=== PATIENT | male | born 1935 | race Caucasian/White ===

== ENCOUNTER 2018-02-18 08:02 | Day surgery (SDC) | payer MEDICARE ==
[2018-02-15 09:47] VITALS: BMI 28.0
[2018-02-18] MEDS ORDERED: LIDOCAINE 1% 20 ML VIAL (10MG/ML) FOR IV START INTRADERMA ONE (09:01)
[2018-02-18] MEDS ORDERED: LACTATED RINGERS 1,000 ML IV ONE ×2 (09:02→11:56)
[2018-02-18] MEDS ORDERED: ONDANSETRON 4 MG/2 ML VIAL IVP ONE (09:13)
[2018-02-18] MEDS ORDERED: DEXAMETHASONE SOD PHOSPHATE 10 MG/ML 1 ML VIAL IV ONE (09:13)
[2018-02-18 09:28] LABS: INR 2.1 (<1.2); Prothrombin Time 18.8 sec (9.0-12.0)
--- NOTE | 2018-02-18 11:50 | P.GSHP ---
History of Present Illness H&P Date: 02/18/18 Chief Complaint: Gross Hematuria The patient is an 82-year-old white male with chronic urinary retention, for which she performs intermittent self-catheterization 69 times daily. He has a history of intermittent gross hematuria. He has undergone cystoscopy with biopsies in 2014 in 2016, each time revealing chronic cystitis. Cystoscopy on those occasions revealed a cobblestone appearance of the bladder dome. He has recently developed recurrent gross hematuria, which has persisted despite antibiotic therapy. He now comes for cystoscopy with biopsies, fulguration of bleeders. - Constitutional Constitutional: Denies chills, Denies fever - Respiratory Respiratory: Denies dyspnea - Genitourinary (Female) Genitourinary: Reports hematuria, Denies dysuria Past Medical History Past Medical History: Atrial Fibrillation, Blood Disorder, Coronary Artery Disease (CAD), Cancer, COPD, CVA/TIA, Diabetes Mellitus, Deep Vein Thrombosis ( DVT), Eye Disorder, GERD/Reflux, Hearing Disorder / Deafness, Hyperlipidemia, Hypertension, Myocardial Infarction (NH), Pulmonary Embolus (PE), Renal Disease , Sleep Apnea/CPAP/BIPAP, Syncope Additional Past Medical History / Comment(s): HX: CVA / some vision loss in L eye, thrombocytopenia purpura, chronic urinary retention-self catheterizes; glaucoma bilateral eyes,hx of testicular cancer/surgery and radiation, stomach cancer/ surgery, chronic anemia, DVT/ associated with piccline/Bilateral pulmonary embolisms ; NH's x 2, back pain, varicose veins bilaterally, inguinal hernia, chronic gallstones, hiatal hernia, polyps, . Last Myocardial Infarction Date:: 11/10 History of Any Multi-Drug Resistant Organisms: None Reported Past Surgical History: Heart Catheterization, Orthopedic Surgery, Pacemaker Additional Past Surgical History / Comment(s): spleenectomy due to war wound in [place], pilonidal cyst removed, L testicle removed, most of stomach removed, parotid tumor removed, arthroscopy both knees, colonoscopy, EGD, adhesion removal, 2 cardiac caths treated medically, cystscopy with bx, piccline insertion and removal. Past Anesthesia/Blood Transfusion Reactions: No Reported Reaction Type of Cardiac Device: Permanent Pacemaker Device Placement Date:: 01/2017 Smoking Status: Former smoker - Past Family History Father Family Medical History: Cancer, Skin Disorder Additional Family Medical History / Comment(s): Psoriasis. Cancer which may have been in his lungs. Mother Family Medical History: AFIB, Cancer Additional Family Medical History / Comment(s): cancer which may have been in her kidneys and liver. Medications and Allergies Home Medications Medication Instructions Recorded Confirmed Type Aspirin 81 mg PO DAILY 12/25/13 02/18/18 History Calcitriol 0.5 mcg PO DAILY 12/25/13 02/18/18 History Ferrous Sulfate [Feosol] 650 mg PO BID 12/25/13 02/18/18 History Latanoprost Ophth [Xalatan 0.005%] 1 drops BOTH EYES HS 12/25/13 02/18/18 History Loratadine [Claritin] 10 mg PO DAILY 12/25/13 02/18/18 History Minocycline HCl [Minocin] 100 mg PO Q12HR 12/25/13 02/18/18 History Pantoprazole Sodium 40 mg PO BID 12/25/13 02/18/18 History Ranitidine HCl 150 mg PO DAILY 12/25/13 02/18/18 History Warfarin [Coumadin] 2.5 mg PO SUTUTHSA 12/25/13 02/18/18 History amLODIPine [Norvasc] 10 mg PO DAILY 12/25/13 02/18/18 History glipiZIDE [Glucotrol] 2.5 mg PO AC-BRKFST 12/25/13 02/18/18 History Ascorbic Acid [Vitamin C] 500 mg PO DAILY 04/09/15 02/18/18 History Multivitamin [Men's Multi-Vitamin] 1 tab PO DAILY 04/09/15 02/18/18 History [place]-3 Fatty Acids/Fish Oil [Fish 1 cap PO DAILY 04/09/15 02/18/18 History Oil 1,000 mg Softgel] Atorvastatin [Lipitor] 5 mg PO Q48H 02/15/18 02/18/18 History Metoclopramide [Reglan] 10 mg PO TID 02/15/18 02/18/18 History Metoprolol Tartrate [Lopressor] 25 mg PO BID 02/15/18 02/18/18 History Warfarin [Coumadin] 5 mg PO MOWEFR 02/18/18 02/18/18 History Allergies Allergy/AdvReac Type Severity Reaction Status Date / Time metformin Allergy Unknown Verified 02/18/18 08:35 Penicillins Allergy Rash/Hives Verified 02/18/18 08:35 Surgical - Exam Vital Signs Temp Pulse BP Pulse Ox 97 F L 71 125/76 100 02/18/18 08:43 02/18/18 08:43 02/18/18 08:43 02/18/18 08:43 - General well developed, well nourished, no distress - Respiratory normal respiratory effort, clear to auscultation - Cardiovascular Rhythm: regular Abnormal Heart Sounds: no systolic murmur, no diastolic murmur, no rub, no S3 Gallop, no S4 Gallop, no click, no other - Abdomen Abdomen: soft, non tender, no guarding, no rigid, no rebound - Psychiatric oriented to time, oriented to person, oriented to place, speech is normal, memory intact Results - Labs Abnormal Lab Results - Last 24 Hours (Table) 02/18/18 Range/Units 09:00 PT 18.8 H (9.0-12.0) sec INR 2.1 H (<1.2) Assessment and Plan (1) Gross hematuria Current Visit: Yes Status: Acute Code(s): R31.0 - GROSS HEMATURIA SNOMED Code(s): 850495492 Plan: Cystoscopy, possible bladder biopsy, fulguration of bleeder. The Obrien tumor is identified, a TUR-BT will be performed. The rationale for the procedure was well understood by the patient. He understands potential risks to include anesthesia, bleeding, infection, persistent hematuria, and bladder perforation.
[2018-02-18] MEDS ORDERED: ceFAZolin IN SWFI 2 GM/20 ML SYRINGE IVP STA (11:54)
[2018-02-18] MEDS ORDERED: PROPOFOL 10 MG/ML 20 ML VIAL IV ONE (12:10)
[2018-02-18] MEDS ORDERED: fentaNYL (PF) 50 MCG/ML 2 ML AMP ONE (12:10)
--- NOTE | 2018-02-18 13:05 | P.OP ---
Date of Procedure: 02/18/18 Preoperative Diagnosis: Gross hematuria Postoperative Diagnosis: Same Procedure(s) Performed: Cystoscopy, evacuation of clot, fulguration of bleeders Anesthesia: MEHRAN Surgeon: Juan Alberto Ramos Estimated Blood Loss (ml): 10 IV fluids (ml): 300 Pathology: none sent Condition: stable Disposition: PACU Indications for Procedure: The patient is an 82-year-old white male with chronic urinary retention, for which she performs intermittent self-catheterization 69 times daily. He has a history of intermittent gross hematuria. He has undergone cystoscopy with biopsies in 2013 in 2016, each time revealing chronic cystitis. Cystoscopy on those occasions revealed a cobblestone appearance of the bladder dome. He has recently developed recurrent gross hematuria, which has persisted despite antibiotic therapy. He now comes for cystoscopy with biopsies, fulguration of bleeders. Operative Findings: Several small clots are removed from the bladder. There are areas of patchy erythema on the posterior bladder wall and bladder dome, two of which are oozing slightly. Description of Procedure: The patient was taken to the operating room and placed in the dorsolithotomy position, with legs supported in Maximus stirrups. The external genitalia was prepped and draped sterilely. The 30 lens was used to introduce the 19-Ivorian Stortz cystoscopic sheath through the urethra and into the bladder under direct vision. The anterior urethra was of narrow caliber, snug to the passage of the cystoscope. The prostatic urethra showed evidence of mild lateral lobe enlargement. The bladder was examined in its entirety. Both ureteral orifices were of normal anatomic location and configuration, and clear urine effluxed from both. No tumors or foreign bodies were seen. Patchy erythema was seen at the bladder dome and posterior bladder wall. A clot was adherent to one of these areas on the posterior bladder wall. Oozing was noted from this site, as well as the bladder dome. The clots were removed from the bladder. The Bugbee electrode was then used to fulgurate the areas of bleeding, as well as other areas of erythema on the posterior bladder wall which appeared prone to oozing. Nonetheless, some oozing was noted as the bladder filled. Therefore, after removing the cystoscope, the decision was made to place a Obrien catheter. A 16- Ivorian Obrien catheter could not be placed, but a 16-Ivorian coud tip catheter was placed without difficulty. The patient tolerated the procedure well was taken to the recovery room in stable condition.
[2018-02-18 13:23] VITALS: TEMP 98.2
[2018-02-18 14:00] VITALS: RESP 16
[2018-02-18 14:32] VITALS: BP 145/74; PULSE 60
== END 2018-02-18 14:49 | disposition home or self-care (01) ==
LOC: OR 08:02
PROVIDERS: ATTEND Urology
DX: R31.0 Gross hematuria (principal); R33.8 Other retention of urine; I48.91 Unspecified atrial fibrillation; I25.10 Atherosclerotic heart disease of native coronary artery without angina pectoris; E11.22 Type 2 diabetes mellitus with diabetic chronic kidney disease; I12.9 Hypertensive chronic kidney disease with stage 1 through stage 4 chronic kidney disease, or unspecified chronic kidney disease; N18.9 Chronic kidney disease, unspecified; Z87.891 Personal history of nicotine dependence; I25.2 Old myocardial infarction; J44.9 Chronic obstructive pulmonary disease, unspecified; I69.398 Other sequelae of cerebral infarction; H53.8 Other visual disturbances; Z86.718 Personal history of other venous thrombosis and embolism; K21.9 Gastro-esophageal reflux disease without esophagitis; K44.9 Diaphragmatic hernia without obstruction or gangrene; E78.5 Hyperlipidemia, unspecified; H91.90 Unspecified hearing loss, unspecified ear; Z86.711 Personal history of pulmonary embolism; G47.30 Sleep apnea, unspecified; Z99.89 Dependence on other enabling machines and devices; Z85.028 Personal history of other malignant neoplasm of stomach; Z85.47 Personal history of malignant neoplasm of testis; Z90.79 Acquired absence of other genital organ(s); Z92.3 Personal history of irradiation; D64.9 Anemia, unspecified; H40.9 Unspecified glaucoma; Z79.01 Long term (current) use of anticoagulants; Z79.84 Long term (current) use of oral hypoglycemic drugs; Z79.82 Long term (current) use of aspirin; Z79.899 Other long term (current) drug therapy; Z88.0 Allergy status to penicillin; Z88.8 Allergy status to other drugs, medicaments and biological substances; Z95.0 Presence of cardiac pacemaker
CPT/HCPCS: 85610; 52001; J1100; J2405; J3010; J2704; J0690

== ENCOUNTER → 2018-03-23 | Outpatient (CLI) | payer MEDICARE ==
[2018-03-23 13:50] LABS: Albumin 4.1 g/dL (3.5-5.0); Calcium 9.7 mg/dL (8.4-10.2); Potassium 4.3 mmol/L (3.5-5.1); Total Bilirubin 0.8 mg/dL (0.2-1.3); Total Protein 8.3 g/dL (6.3-8.2)
[2018-03-23 13:56] LABS: Basophils # (A) 0.1 k/uL (0-0.2); Basophils % (A) 1 %; Eosinophils # (A) 0.2 k/uL (0-0.7); Eosinophils % (A) 3 %; HCT 40.2 % (39.0-53.0); HGB 12.7 gm/dL (13.0-17.5); Hypochromasia Moderate; Lymphocytes # (A) 1.8 k/uL (1.0-4.8); Lymphocytes % (A) 27 %; MCH 31.8 pg (25.0-35.0); MCHC 31.6 g/dL (31.0-37.0); MCV 100.7 fL (80.0-100.0); Macrocytosis Slight; Mean Platelet Volume 7.9; Monocytes # (A) 0.5 k/uL (0-1.0); Monocytes % (A) 8 %; Neutrophils # (A) 3.9 k/uL (1.3-7.7); Neutrophils % (A) 59 %; Platelet Count 206 k/uL (150-450); RBC 3.99 m/uL (4.30-5.90); RDW 15.1 % (11.5-15.5); WBC 6.6 k/uL (3.8-10.6)
--- NOTE | 2018-03-23 15:28 | CT ---
EXAMINATION TYPE: CT ChestAbdPelvis wo/w con DATE OF EXAM: 03/23/2018 COMPARISON: November 05, 2014 HISTORY: Abnormal weight loss, nausea, vomiting, generalized pain. CT DLP: 1973.6 mGycm CONTRAST: CT scan of the chest, abdomen and pelvis is performed with Oral Contrast and without and with IV Cont rast, patient injected with 80 mL of Isovue 300. CT Chest: LUNGS: There is a small right-sided pleural effusion. 3 mm right lower lobe subpleural nodule noted. Upper lobe emphysematous changes mild in degree. MEDIASTINUM: There is soft tissue mass noted adjacent to or arising from the distal esophagus measuri ng 5.6 x 4.4 cm. There is esophageal luminal narrowing with proximal dilatation with intraluminal merced ris. Tissue diagnosis is recommended to exclude malignancy. No additional mediastinal masses seen. Pr ecarinal adenopathy measuring 1.4 cm. Subcarinal adenopathy measuring 1.7 cm. Thoracic aorta is of no rmal caliber. Mild atheromatous changes seen. The heart is mildly enlarged. HILAR STRUCTURES: Right hilar adenopathy noted measuring 3.4 cm in greatest dimension. Additional sma ller slightly greater than 1 cm lymph nodes seen right hilum. OTHER: No significant abnormality. CONTRAST CT ABDOMEN AND PELVIS FINDINGS: LIVER/GB: There is evidence of cholelithiasis.. No space occupying hepatic lesion. Biliary tree is o f normal caliber. PANCREAS: No inflammation. No distinct mass. SPLEEN: Diminutive and partially calcified spleen. ADRENALS: No nodule. No thickening. KIDNEYS/BLADDER: No hydronephrosis. No nephrolithiasis. Renal parenchymal thinning. Multiple hypoat tenuating hepatic lesions may reflect cysts. BOWEL: Normal appendix. Normal bowel caliber. No infla mmation. GENITAL ORGANS: No gross abnormality. LYMPH NODES: No greater than 1cm abdominal or pelvic lymph nodes are appreciated. AORTA: No significant abnormality. OSSEOUS STRUCTURES: No significant abnormality is seen. OTHER: Fat and fluid containing right inguinal hernia. IMPRESSION: 1. There is soft tissue mass noted adjacent to or arising from the distal esophagus measuring 5.6 x 4 .4 cm. There is esophageal luminal narrowing with proximal dilatation with intraluminal debris. Tissu e diagnosis is recommended to exclude malignancy. 2. Mediastinal and hilar adenopathy. 3. Small right-sided pleural effusion with the subpleural nodule right lower lobe. 4. Cholelithiasis. 5. The renal parenchymal thinning with the renal cystic changes noted.
== END ==
LOC: RADCTMAIN 12:47
PROVIDERS: ATTEND Internal Medicine Gastroenterology
DX: K80.20 Calculus of gallbladder without cholecystitis without obstruction (principal); N28.1 Cyst of kidney, acquired
CPT/HCPCS: 80053; 85025; 71270; 74178; 36415; Q9967

== ENCOUNTER 2018-04-19 08:50 | Day surgery (SDC) | payer MEDICARE ==
[2018-04-15 14:52] VITALS: BMI 25.1
[~2018-04-19 08:50] MED LIST: HYDROmorphone 0.5 MG/0.5 ML SYRINGE IVP PRN; LACTATED RINGERS 1,000 ML IV SCH; LIDOCAINE 1% 20 ML VIAL (10MG/ML) FOR IV START INTRADERMA PRN
[2018-04-19] MEDS ORDERED: LIDOCAINE 1% 20 ML VIAL (10MG/ML) FOR IV START INTRADERMA ONE (10:31)
[2018-04-19 10:47] VITALS: RESP 16; TEMP 97.1
[2018-04-19 10:52] LABS: Glucose,Whole Blood 105 mg/dL (75-99)
[2018-04-19] MEDS ORDERED: LIDOCAINE 1% INJ 10MG/ML (20 ML MDV) ONE (11:39)
[2018-04-19] MEDS ORDERED: PROPOFOL 10 MG/ML 20 ML VIAL IV ONE (11:39)
[2018-04-19 12:25] VITALS: PULSE 70
--- NOTE | 2018-04-19 12:31 | P.PCN ---
Date of Procedure: 04/19/18 Procedure(s) Performed: Procedure: Esophagogastroduodenoscopy and esophageal dilation using the Microvasive btdtfoe-umy-zidwb balloon dilator size 10-12 mm. Preoperative diagnosis: Dysphagia, weight loss and abnormal CT. Postoperative diagnosis: 1. Benign narrowing in the distal esophagus requiring dilation up to 12 mm before I could pass the endoscope into the gastric remnant. 2. No intrinsic mass at that gastroesophageal junction. 3. S/P subtotal gastrectomy with no masses in the gastric remnant or abnormalities at the anastomosis with the small intestine. Preparation and sedation: Were provided by anesthesia. Brief clinical history: The patient is an 82-year-old male with history of gastric cancer for which he underwent subtotal gastrectomy in 2003. He was having difficulties last year with swallowing and an upper endoscopy was performed October 2017 with dilation of the esophagus up to 18 mm. The esophagus was further dilated in November up to 20 mm. The patient underwent a CT scan in February that demonstrated a soft tissue mass adjacent to or arising from the distal esophagus. Tissue diagnosis was recommended. The patient has been having progressive dysphagia and weight loss since January with loss of 35-40 pounds. Procedure: With the patient on his left lateral decubitus position and after informed consent and adequate sedation, I passed the Olympus GIF-XQ 190 video upper endoscope, which measures 9.9 mm, through the cricopharyngeus down the esophagus. Once in the distal esophagus at around 40 cm from the incisors there was narrowing that would not allow the advancement of the endoscope. This appeared to be a benign narrowing and I proceeded to pass the Microvasive hjkrbro-her-pjrso balloon dilator size 10-12 mm and I inflated it up to 12 mm following which I was able to pass the endoscope into the gastric remnant. As mentioned, the narrowing appeared benign and there was no evidence of intrinsic mass. There was friability in the gastric remnant but no masses or any abnormalities at the junction with the esophagus or with the intestine. I advanced the endoscope into the small intestine as well. In the retroflexed view no masses are seen in the esophagus. The patient tolerated the procedure well. Plan: The patient was reassured. It is possible that we could be dealing with a benign stricture, on top of dysmotility or extrinsic compression on the esophagus. We will consider further evaluation including barium study and motility studies based on his course as well as further dilation especially in light of his weight loss. Would keep you updated on his progress.
[2018-04-19 12:42] VITALS: BP 120/73
== END 2018-04-19 13:22 | disposition home or self-care (01) ==
LOC: ORWHC2ENDO 08:50
DX: K22.2 Esophageal obstruction (principal); Z90.3 Acquired absence of stomach [part of]; Z85.028 Personal history of other malignant neoplasm of stomach; I25.10 Atherosclerotic heart disease of native coronary artery without angina pectoris; I10 Essential (primary) hypertension; E78.5 Hyperlipidemia, unspecified; I48.91 Unspecified atrial fibrillation; Z95.0 Presence of cardiac pacemaker; Z86.718 Personal history of other venous thrombosis and embolism; Z86.711 Personal history of pulmonary embolism; J44.9 Chronic obstructive pulmonary disease, unspecified; G47.33 Obstructive sleep apnea (adult) (pediatric); Z87.891 Personal history of nicotine dependence; E11.9 Type 2 diabetes mellitus without complications; Z86.73 Personal history of transient ischemic attack (TIA), and cerebral infarction without residual deficits; H91.90 Unspecified hearing loss, unspecified ear; K21.9 Gastro-esophageal reflux disease without esophagitis; Z79.01 Long term (current) use of anticoagulants; Z79.84 Long term (current) use of oral hypoglycemic drugs; Z79.899 Other long term (current) drug therapy; Z88.0 Allergy status to penicillin; Z88.8 Allergy status to other drugs, medicaments and biological substances
CPT/HCPCS: 43249; J2001; J2704; C1726

== ENCOUNTER → 2018-05-11 | Outpatient (CLI) | payer MEDICARE ==
[2018-05-11 09:11] LABS: HCT 47.2 % (39.0-53.0); MCHC 31.7 g/dL (31.0-37.0); MCV 97.6 fL (80.0-100.0); Mean Platelet Volume 7.3; Platelet Count 174 k/uL (150-450); RBC 4.83 m/uL (4.30-5.90); RDW 15.2 % (11.5-15.5); WBC 7.3 k/uL (3.8-10.6)
[2018-05-11 09:34] LABS: Calcium 10.2 mg/dL (8.4-10.2)
[2018-05-11 09:35] LABS: Potassium 5.2 mmol/L (3.5-5.1)
--- NOTE | 2018-05-11 11:25 | CT ---
EXAMINATION TYPE: CT chest abdomen wo/w con DATE OF EXAM: 05/11/2018 COMPARISON: 03/23/2018 HISTORY: 82-year-old male Esophageal mass, Dysphagia TECHNIQUE: Contiguous axial scanning of the chest and abdomen before and after administration of 100 ml Isovue 300 IV contrast. Delayed images through the kidneys and coronal/sagittal reconstructions p erformed. CT DLP: 1990 mGycm Automated exposure control for dose reduction was used. FINDINGS: Chest: left-sided pacemaker generator with right atrial and right ventricular leads. Heart normal size witho ut pericardial effusion. Dense mitral annular calcifications. Coronary artery calcifications. 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 Moderate atherosclerotic arch calcifications wi th very direct takeoff of the left vertebral artery directly from the aortic arch. Redemonstrated lower right paraesophageal mass like density, relatively stable in the interval measur ing 5.2 x 4.2 cm. There seems to be mild patchy enhancement with relative central hypodensity. Mildly enlarged 1.4 cm precarinal lymph node and prominent 1.3 cm right hilar lymph nodes are unchang ed. There is secondary dilatation of the proximal esophagus with retained ingested debris and contrast ma terial. Abnormal narrowing of the distal third esophagus above the level of the GE junction at the le raciel of the mass. Finding are largely new from the older 11/05/2014 exam. Mild emphysematous change. Strandy scarring especially in the right lower lobe with reticulonodular d ensities measuring up to 6 mm not significantly progressed from 05/24/2017. Resolution of previous small right pleural effusion. ABDOMEN: Moderate to severe atherosclerotic calcifications throughout the abdominal aorta and iliac arteries. No excretion of contrast from either kidney on the delayed kidney images. Correlate with patient's re nal function. Layering gallstones are present measuring up to 7 mm. No biliary ductal dilatation. Mild periportal e alphonso. Multiple cortical defects involving both kidneys with duplicated right-sided collecting system. Tiny subcentimeter cysts are present in the kidneys. Adrenal glands within normal limits. Pancreas is atrophic. 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 Postsurgical changes along the stomach. Mild to moderate ingested debris distending the remnant stoma ch. There appears to be a gastrojejunostomy. No dilated small bowel, free fluid, or free air. No mese nteric or retroperitoneal lymphadenopathy seen. Bones: Degenerative changes throughout the mid to lower lumbar spine accentuated midthoracic kyphosis. Grade 1 anterolisthesis at L4-L5. IMPRESSION: 1. REDEMONSTRATED 5.4 CM IRREGULAR LOWER RIGHT ESOPHAGEAL/PARAESOPHAGEAL MASS, RELATIVELY SIMILAR TO 2 MONTHS PRIOR. THIS CAUSES SIGNIFICANT NARROWING OF THE LOWER ESOPHAGEAL LUMEN AND THERE IS PROMINEN T INGESTED DEBRIS AND CONTRAST DISTENDING THE ESOPHAGUS PROXIMALLY. 2. IF ENDOSCOPY WAS PERFORMED AND NO MASS WAS IDENTIFIED, CONSIDER POSSIBILITY OF A PARAESOPHAGEAL MA SS WITH EXTRINSIC COMPRESSION ONTO THE ESOPHAGUS. 3. STABLE MILDLY ENLARGED PRECARINAL AND RIGHT HILAR LYMPH NODES MEASURING UP TO 1.3 CM. 4. STABLE INTERSTITIAL SCARRING AND SOME RETICULONODULAR DENSITIES AT THE RIGHT BASE.; INFLAMMATION S UCH FROM MILD ASPIRATION IS POSSIBLE. 5. POST SURGICAL CHANGES INVOLVING THE STOMACH WITH GASTROJEJUNOSTOMY. THERE IS INGESTED DEBRIS MODER ATELY DISTENDING THE REMNANT STOMACH. IF THERE WAS NO RECENT MEAL, FINDINGS COULD REPRESENT GASTROPAR ESIS OR ANASTOMOTIC STRICTURE. 6. SMALL SPLEEN AND PROBABLE 3.2 CM PSEUDOCYST OF THE SPLEEN, SMALLER FROM 2015. 7. CHOLELITHIASIS, DUPLICATED RIGHT RENAL COLLECTING SYSTEM, AND MULTIPLE CORTICAL DEFECTS SUGGESTING PRIOR VASCULAR OR INFECTIOUS INSULTS OF BOTH KIDNEYS. 8. NO CONTRAST EXCRETION FROM THE KIDNEYS ON DELAYED KIDNEY IMAGES. CORRELATE TO EXCLUDE ACUTE RENAL FAILURE.
--- NOTE | 2018-05-11 17:17 | FL ---
MODIFIED SWALLOW / DEGLUTITION STUDY DATE OF EXAM: 05/11/2018 CLINICAL HISTORY: 82-year-old male abnormal weight loss, nausea, vomiting, Dysphagia. TECHNIQUE: Deglutition study is performed utilizing thin liquid barium, honey and nectar thick liqui d barium, barium thick applesauce, and barium coated cracker. Total fluoroscopy time: 1 minute 53 seconds. Total images: None. Real-time fluoroscopy support was provided to speech pathology. COMPARISON: None. FINDINGS: There is absence of pharyngeal peristalsis. The patient was instructed to take only tiny sips. There is silent aspiration with thin liquids. Douds liquids results in coating of the undersurface of the vocal cords. Honey thick and pudding consistencies resulted in significant piriform sinus residuals with grayson asp iration of the residual after the swallow. Aspiration is silent. The exam is terminated at this point IMPRESSION: Absence of pharyngeal peristalsis with excessive residuals and grayson silent aspiration with thin liqu ids, nectar liquids, and honey liquid consistencies. J-tube may be indicated. Please refer to speech therapist notes for further details if necessary.
== END ==
LOC: RADCTMAIN 08:30
DX: K22.8 Other specified diseases of esophagus (principal); R13.10 Dysphagia, unspecified; Z90.89 Acquired absence of other organs
CPT/HCPCS: 92611; 80048; 85027; 74230; 71270; 74170; 36415; Q9967